=== PATIENT | female | born 1940 | race Caucasian/White ===

== ENCOUNTER → 2021-12-30 13:00 | Outpatient (CLI) | payer MEDICARE, MEDICAID, SELFPAY ==
--- NOTE | 2021-12-30 13:03 | DI.CT.S_ITS ---
PROCEDURE: CT ABDOMEN PELVIS WO CON INDICATIONS: Unspecified abdominal hernia TECHNIQUE: Axial sections were acquired from the lung bases to the pubic symphysis. Coronal and sagittal reformats were performed. For radiation dose reduction, the following was used: automated exposure control, adjustment of mA and/or kV according to patient size. COMPARISON: None. FINDINGS: Image quality: Excellent. Lung bases: Unremarkable. Heart: No significant findings. URINARY: Right Kidney: No stones or hydronephrosis. Right Ureter: No hydroureter. Left Kidney: No stones or hydronephrosis. Left Ureter: No hydroureter. Bladder: Normal wall thickness. No stones. ABDOMEN: Liver: A few calcified liver hemangiomas are seen. The liver is normal in size and demonstrates no suspicious lesions. Gallbladder: Unremarkable. Biliary ducts: Unremarkable. Pancreas: Unremarkable. Spleen: A few calcified splenic granulomas can be seen. Adrenal Glands: Unremarkable. Stomach and Bowel: Stomach, small bowel loops, and colon are unremarkable. Peritoneum: No abnormal intraperitoneal fluid. No free air. Ventral Wall: There is a right-sided spigelian hernia seen, which contains fat, as on series 2, image 58 and on series 4, image 20. Abdominal Nodes: No enlarged retroperitoneal or mesenteric lymph nodes. Vessels: Aorta and inferior vena cava are normal in size. Atherosclerotic calcification is noted. PELVIS: Pelvic Organs: An atrophic uterus is seen, which is considered to be normal for age. No adnexal masses are seen on either side. Pelvic Nodes: Unremarkable. Miscellaneous: There is a moderately sized right inguinal hernia seen, which contains fat. Bones: Mild dextroconvex scoliotic curvature is seen. Age-appropriate bony degenerative changes are seen. IMPRESSION: Right-sided spigelian hernia, which contains fat. Incidental note is made of: Prior granulomatous exposure. Moderately sized fat containing right inguinal hernia. Dictated by: Eduardo Mckeon M.D. on 12/30/2021 at 16:43 Approved by: Eduardo Mckeon M.D. on 12/30/2021 at 16:47
== END ==
PROVIDERS: PCP Student in an Organized Health Care Education/Training Program; Referring Provider Student in an Organized Health Care Education/Training Program; Visit Provider Student in an Organized Health Care Education/Training Program
DX: K43.9 Ventral hernia without obstruction or gangrene (principal); K40.90 Unilateral inguinal hernia, without obstruction or gangrene, not specified as recurrent
CPT/HCPCS: 74176

== ENCOUNTER 2022-01-05 10:38 | Day surgery (SDC) | payer MEDICARE, MEDICAID, SELFPAY ==
[2022-01-03 10:55] VITALS: BMI 20.5
[2022-01-05] VITALS (10 sets, daily range): BP systolic 105–132; BP diastolic 56–74; PULSE 65–104; RESP 12–20; TEMP 36.2–36.7; O2SAT 94–99; BMI 20.5
[2022-01-05] MEDS: LACTATED RINGERS 1,000 ML 100 ML IV (11:40)
[2022-01-05 12:03] LABS: COVID19 -Nasal RAPID Negative (Negative)
--- NOTE | 2022-01-05 12:08 | PM.PREOP ---
Pre-operative Note Interval Note History & Physical reviewed/Exam performed by Physician: Yes Changes to H&P: No
[2022-01-05] MEDS: CEFAZOLIN 2 GM/20 ML SYRINGE IV (12:48)
--- NOTE | 2022-01-05 12:57 | SUR.OPER ---
Supine on padded OR bed, head on pillow, arms secured on padded arm boards at <90 degrees abduction, legs uncrossed, safety belt at thigh, tape over blanket over lower legs, gel padding under bilateral heels.
[2022-01-05] MEDS: BUPIVACAINE 0.25% (PF) VIAL 30 ML INJ (13:06)
--- NOTE | 2022-01-05 13:55 | PM.OP.1 ---
Operative Date/Time/Diagnoses Date of procedure: 01/05/22 Time of procedure: 13:55 Pre-op diagnosis: Right inguinal hernia Post-op diagnosis: same Procedure & Clinicians Procedure: Open right inguinal repair with mesh Same procedure as scheduled: Yes Indications: Reducible symptomatic right inguinal hernia Surgeon: Gideon Arrieta Yes if Unassisted: Yes Anesthesia Type: General Operative Notes Findings: Direct floor defect containing omentum Estimated Blood Loss (mL): 50 Procedure in detail: The patient was placed supine on the table and bilateral lower extremity compression devices were applied. Anesthesia was induced they were intubated with an LMA and received Ancef. A time-out was performed. They were prepped and draped in sterile fashion. The right external inguinal ring and the anterior superior iliac crest were identified and marked. 1 finger breath above the inguinal ligament the skin was infiltrated with 0.25% bupivacaine. The skin incision was made here and the subcutaneous tissues were divided with electrocautery exposing the external oblique aponeurosis which was then opened along the direction of its fibers. Using blunt dissection the internal oblique aporneurosis was from the external oblique upper leaflet to identify the iliohypogastric nerve. A direct floor defect was identified and it was reduced into the abdomen and the internal oblique aporneuorsis was approximated to the inguinal ligament with Ethibond suture to reapproximate the floor. I selected a 7x 15 cm lightweight Pro Loop hernia mesh. The inferior medial aspect of the mesh was anchored to insertion of the rectus muscle to the pubic tubercle such that there was approximately 2 cm of tubercle overlap with Ethibond and then was run continuously along the inferior edge of the mesh to the shelving edge of the inguinal ligament. Interrupted 3 0 Vicryl suture was used to anchor the superior aspect of the mesh to the conjoined tendon in several places. The repair was checked for hemostasis. The wound was irrigated with sterile saline. The external oblique aponeurosis was reapproximated in a running fashion using 3 0 Vicryl. The subcutaneous tissues were reapproximated with 3 0 Vicryl skin closed with 4 0 Monocryl followed by the application of Dermabond. The sponge instrument count at the end operation was correct. The patient emerged from anesthesia was extubated and transferred to the postoperative care unit in stable condition. A total of 30 ml of of 0.25% bupivicaine was used to infiltrate the skin. Complications: none Post-operative Condition: stable Disposition: same day surgery
--- NOTE | 2022-01-05 13:58 | SUR.PHASEI ---
A&O, pleasant, comfortable, tolerating PO well. Anxious to go home.
== END 2022-01-05 14:45 | disposition home or self-care (01) ==
PROVIDERS: PCP Student in an Organized Health Care Education/Training Program; Referring Provider Surgery; Visit Provider Surgery
PROC: (CPT 49505; principal; 2022-01-05 11:15)
DX: K40.90 Unilateral inguinal hernia, without obstruction or gangrene, not specified as recurrent (principal); Z20.822 Contact with and (suspected) exposure to COVID-19
CPT/HCPCS: 49505; 82962; 87635; C9803; J0690; J1100; J2405; J2704; J3010

== ENCOUNTER 2024-03-06 07:20 | Day surgery (SDC) | payer MEDICARE, MEDICAID, SELFPAY ==
[2024-03-04 10:41] VITALS: BMI 22.8
--- NOTE | 2024-03-05 08:18 | PM.PREOP ---
Pre-operative Note Interval Note History & Physical reviewed/Exam performed by Physician: Yes Changes to H&P: No
[2024-03-06] VITALS (8 sets, daily range): BP systolic 68–142; BP diastolic 33–84; PULSE 51–70; RESP 11–19; TEMP 36.2–36.9; O2SAT 94–98; BMI 22.8
[2024-03-06] MEDS: LACTATED RINGERS 1,000 ML 21 ML IV (07:50)
[2024-03-06] MEDS: ACETAMINOPHEN 325 MG TABLET 975 MG PO (08:10)
[2024-03-06] MEDS: CEFAZOLIN 2 GM/100 ML PREMIX 100 ML IV (08:37)
--- NOTE | 2024-03-06 08:59 | SUR.OPER ---
Supine on padded OR bed, head on pillow, arms padded and tucked at sides, legs uncrossed, safety belt at thigh, tape over blanket over lower legs .
[2024-03-06] MEDS: BUPIVACAINE 0.25% (PF) VIAL 30 ML INJ (09:07)
--- NOTE | 2024-03-06 12:15 | PM.OP.1 ---
Operative Date/Time/Diagnoses Date of procedure: 03/06/24 Time of procedure: 12:15 Pre-op diagnosis: Recurrent right inguinal hernia Post-op diagnosis: same Procedure & Clinicians Procedure: Laparoscopic repair of recurrent right inguinal hernia Same procedure as scheduled: Yes Indications: Symptomatic reducible right inguinal hernia. Previous open repair Surgeon: Gideon Millan Public Area Attendant: Td Coombs Anesthesia Type: General Operative Notes Findings: Direct floor defect. Specimen(s): none sent Estimated Blood Loss (mL): 20 Procedure in detail: The patient was brought to the operating room and placed supine on the table. Bilateral sequential compression devices were applied. General anesthesia was induced and they were intubated with an endotracheal tube. A frye cath was placed in sterile fashion. They received 2 g Ancef prior to skin incision. They were prepped and draped in sterile fashion. A time out was performed to ensure the correct patient, procedure and necessary equipment within the operating room. The skin was infiltrated with 0.25% bupivicaine. A 1 cm supra umbilical midline incision was made. The fascia was sharply incised and the abdomen entered traumatically. A 10mm balloon port was placed and pneumoperitoneum was established at 15mm Hg. Inspection of the abdomen demonstrated no evidence of injury upon entry. Two 5 mm ports were then placed under direct visualization in the right and left lower quadrant lateral to the rectus muscle. A right direct hernia was identified. The peritoneum 4 cm superior to the deep inguinal ring between the medial umbilical ligament and the anterior superior iliac spine was incised. The medial preperitoneal dissection was carried out into the space of Retzius bluntly, the bladder was swept inferiorly, the pubis and Tim's ligament were identified. Next attention was turned towards the lateral aspect of the peritoneal flap. The preperitoneal fat was carefully dissected off the inferior peritoneal flap. The round ligament was divided using electrocautery.. The attachements to the direct hernia sac were divided and the direct defect was reduced. A large Bard 3D Max mesh was then placed into the abdomen and positioned such that the myopectineal orifice was completely covered with good overlap on all sides. The peritoneal flap was then repositioned back to its original position and a running V lock suture was used to close the peritoneum such that no bowel could herniate into the preperitoneal space. The area was examined for hemostasis. The 5mm trocars were removed under direct visualization and pneumoperitoneum was deflated through the umbilical trocar, The fascia at the umbilicus was closed with 0-Vicryl in figure of 8 fashion, skin closed with 4-0 Monocyl followed by Dermabond. The sponge and instrument count at the end of the case was correct. The patient emerged from anaesthsia was extubated and transferred to recovery in stable condition. Complications: none Post-operative Condition: stable Disposition: same day surgery
== END 2024-03-06 11:04 | disposition home or self-care (01) ==
PROVIDERS: Referring Provider Surgery; Visit Provider Surgery
PROC: 0YQ54ZZ Repair Right Inguinal Region, Percutaneous Endoscopic Approach (ICD-10-PCS; CPT 49651; principal; 2024-03-06 08:45)
DX: K40.91 Unilateral inguinal hernia, without obstruction or gangrene, recurrent (principal)
CPT/HCPCS: 49651; J0690; J1100; J2405; J2704; J3010

== ENCOUNTER 2024-03-28 09:14 | Emergency (ER) | payer MEDICARE, MEDICAID, SELFPAY ==
[2024-03-28] VITALS (14 sets, daily range): BP systolic 115–179; BP diastolic 58–75; PULSE 50–63; RESP 12–16; TEMP 36.5; O2SAT 94–99; BMI 21.2
--- NOTE | 2024-03-28 09:57 | ED.RECABL ---
HPI - Recheck/Abnormal Lab/Rx General Chief Complaint: Recheck/Abnormal Lab/Rx Stated Complaint: per pt has cyst pressing on bladder Time Seen by Provider: 03/28/24 09:52 Source: patient Mode of arrival: Ambulatory History of Present Illness HPI narrative: Patient is a 83-year-old female history of colon cancer stopped chemotherapy in September had a recent right inguinal hernia repair on 03/06/[address] Millan presents today after routine scanning yesterday. She has no symptoms she has no abdominal pain nausea vomiting weight loss fever or frequent urination. She reports that she was told to emergently come to the ED when they found assist pushing on her bladder. We do not have records of the scan although we are attempting to get them now. She has no abdominal pain. Related Data Home Medications Medication Instructions Recorded Confirmed cholecalciferol (vitamin D3) 50 50 mcg PO DAILY 12/31/21 03/21/24 mcg (2,000 unit) capsule (Vitamin D3) lactobacillus combination no.9 4 4,000 mmu cells PO DAILY 12/31/21 03/21/24 billion cell capsule (Adult 50 Plus Probiotic) multivitamin (Daily Vitamin 1 tab PO DAILY 12/31/21 03/21/24 Formula tablet) Previous Rx's Medication Instructions Recorded acetaminophen 325 mg capsule 650 mg (2 x 325 mg) PO QID PRN 01/05/22 (Tylenol) pain #60 caps ibuprofen 200 mg tablet 400 mg (2 x 200 mg) PO Q6H #60 tabs 01/05/22 docusate sodium 100 mg capsule 100 mg PO BID #30 caps 03/06/24 (Colace) tramadol 50 mg tablet 50 mg PO Q6H PRN pain #15 tabs 03/06/24 Allergies Allergy/AdvReac Type Severity Reaction Status Date / Time No Known Drug Allergies Allergy Verified 03/28/24 09:27 Patient History Medical History 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 Broken leg MS (multiple sclerosis) Surgical History History of colonoscopy with polypectomy (10/25/23) Hx of hernia repair (01/05/22) H/O colectomy H/O right inguinal hernia repair H/O vaginal surgery Social History marital status: unknown household members: none lives independently: Yes occupational status: previously employed Smoking Status: Former smoker alcohol intake: current substance use type: does not use Smoking Status: Former smoker alcohol intake frequency: holidays/special occasions only Substance Use Type: does not use Exam Initial Vital Signs Initial Vital Signs: Vital Signs Temperature 97.7 F 03/28/24 09:16 Pulse Rate 57 L 03/28/24 09:16 Respiratory Rate 15 03/28/24 09:16 Blood Pressure 179/75 H 03/28/24 09:16 Pulse Oximetry 96 03/28/24 09:16 Oxygen Delivery Method Room Air 03/28/24 09:16 GENERAL: Alert 83-year-old female and in no acute distress. HEENT: Head atraumatic,EOMI, pupils reactive, face symmetric, moist mucous membranes CARDIOVASCULAR: Regular rate and rhythm without murmurs, rubs or gallops. RESPIRATORY: Breath sounds equal bilaterally, no wheezes rales or rhonchi. ABDOMEN: Soft, nontender. Normoactive bowel sounds all 4 quadrants. No guarding or rebound. EXTREMITIES: Normal range of motion, no clubbing or edema. Neurovascularly intact NEUROLOGICAL: Alert and oriented x4.Normal gait and speech. Cranial nerves II through XII grossly intact. SKIN: Warm, dry, no laceration, no petechiae, no rashes or lesions. Course Orders Ordered: ED Orders 03/28/24 11:34 US pelvic complete Stat 03/28/24 11:50 CBC Auto Diff [Complete Blood Count AUTO DIFF] Stat CEA [Carcinoembryonic Antigen] Stat CMP [Comprehensive Metabolic Panel] Stat Cancer Antigen 125 Stat Vital Signs Vital signs: Vital Signs - 8 hr 03/28/24 13:50 03/28/24 13:51 03/28/24 13:52 Pulse Rate 63 63 Respiratory Rate Blood Pressure 145/66 H Pulse Oximetry 98 98 03/28/24 13:52 03/28/24 14:41 03/28/24 14:42 Pulse Rate 63 62 Respiratory Rate Blood Pressure Pulse Oximetry 99 99 98 03/28/24 14:42 03/28/24 15:00 03/28/24 15:00 Pulse Rate 57 L Respiratory Rate 12 Blood Pressure 115/60 132/58 L Pulse Oximetry 98 03/28/24 15:30 03/28/24 15:30 03/28/24 16:00 Pulse Rate 50 L 54 L Respiratory Rate Blood Pressure 144/67 H Pulse Oximetry 98 97 03/28/24 16:01 03/28/24 16:01 03/28/24 16:29 Pulse Rate 58 L 58 L Respiratory Rate 12 Blood Pressure 155/70 H 156/67 H Pulse Oximetry 97 95 03/28/24 16:29 03/28/24 16:30 Pulse Rate Respiratory Rate Blood Pressure 156/67 H Pulse Oximetry 96 MDM - Recheck/Abnormal Lab/Rx Lab Data 03/28/24 11:50 03/28/24 11:50 Labs: Lab Results 03/28/24 Range/Units 11:50 WBC 3.3 L (4.5-11.0) X10^3/uL RBC 4.65 (4.0-5.2) X10^6/uL Hgb 13.5 (12.0-16.0) g/dL Hct 40.3 (36-46) % MCV 86.7 (80-100) fL MCH 29.1 (26-34) PG MCHC 33.5 (30-36) % RDW 15.0 H (11.6-14.8) % Plt Count 167 (150-400) X10^3/uL Neut % (Auto) 45.0 L (50-75) % Lymph % (Auto) 38.6 (25-40) % Saline % (Auto) 10.6 (3-14) % Eos % (Auto) 4.3 H (2-4) % Baso % (Auto) 1.5 (0-2) % Neut # (Auto) 1500 (5858-2844) /uL Lymph # (Auto) 1300 (7903-3085) /uL Saline # (Auto) 300 (0-900) /uL Eos # (Auto) 100 (0-450) /uL Baso # (Auto) 0 (0-100) /uL Sodium 139 (137-145) mmol/L Potassium 4.0 (3.4-5.1) mmol/L Chloride 108 H (98-107) mmol/L Carbon Dioxide 24 (22-32) mmol/L BUN 17 (7-17) mg/dL Creatinine 0.62 (0.52-1.04) mg/dL Estimated GFR > 60 (>60) mL/min BUN/Creatinine Ratio 27.4 H (6-22) Glucose 90 (80-110) mg/dL Calcium 8.9 (8.4-10.2) mg/dL Total Bilirubin 0.6 (0.2-1.3) mg/dL AST 28 (14-36) IU/L ALT 14 (<35) IU/L Alkaline Phosphatase 140 H (38-126) U/L Total Protein 7.0 (6.3-8.2) g/dL Albumin 4.1 (3.5-5.0) g/dL Globulin 2.9 (1.7-4.1) g/dL Albumin/Globulin Ratio 1.4 (1.0-2.8) Carcinoembryonic Ag 1.9 (0.1-3.0) ng/mL CA 125 Antigen 30.3 (0-35) U/mL Imaging Data US - NEWSPAPER PHOTOGRAPHER: Radiologist's Impression: PROCEDURE: MR HEAD/BRAIN WO CON INDICATIONS: tia TECHNIQUE: Non-contrast axial T1 spin echo, axial T2 fast spin echo, sagittal and axial FLAIR, coronal T2 fast spin echo, axial gradient echo, axial diffusion and ADC through the brain. COMPARISON: [facility], MR, MR HEAD/BRAIN WO CON, 07/05/2023, 15:33. [facility], CT, CT HEAD/BRAIN WO CON, 12/24/2020, 12:14. [facility], CT, CT HEAD/BRAIN WO CON, 03/28/2024, 13:56. [facility], CT, CT ANGIO HEAD AND NECK, 03/28/2024, 13:56. FINDINGS: Image quality: Excellent. CSF spaces: Ventricles appear symmetric in size and shape. Basal cisterns are patent. No extra-axial fluid collections. Brain: No intracranial bleeds or mass effects. There is cerebral volume loss for age. There are periventricular and deep white matter chronic small vessel ischemic changes. Brainstem appears normal. Diffusion-weighted images show no acute infarct. 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 Normal intravascular flow voids are present. Skull and face: Calvarial bone marrow is normal in signal. Orbits are normal. Note is made of bilateral lens replacements. No nasopharyngeal mass can be seen. Sinuses: There is significant left mastoid air cell fluid seen. No significant paranasal sinus disease can be seen. IMPRESSION: No findings of acute or subacute infarction can be seen. Note is made of age-appropriate brain parenchymal volume loss and chronic small vessel ischemic changes. 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 Significant left mastoid air fluid again seen. No associated nasopharyngeal mass is seen. Dictated by: Eduardo Mckeon M.D. on 03/28/2024 at 15:03 MDM Narrative Medical decision making narrative: MDM CC: Cyst Complicating co-morbidities: Colon cancer Medical records reviewed: [facility] not [facility] any new imaging except for January 16 CT, I spoke with Oncology office staff who did not see any new imaging said that she is due for imaging, however finally on patient's ?my chart she was able to pull up the CT imaging that she had yesterday which does show that compared to exam on 01/17/2024 new large encapsulated simple fluid collection in the right lower pelvis measures up to 9.9 cm and exhibits leftward mass effect on the urinary bladder. This finding is of unclear etiology however given simple fluid appearance without surrounding inflammatory changes a seroma or lymphocele are favored and less likely to be an adnexal cyst given patient age or abscess. She has a similar appearance of pad containing right femoral hernia without surrounding inflammation or fluid collection, she has a slightly decreased size of left upper lobe pulmonary nodule Differential considered: Metastatic cancer new cancer Exam documented above, pertinent findings include: Abdomen soft nontender nondistended Lab Test results independently reviewed as above. Pertinent findings: CEA it is 30, CA 125 is 1.9, WBC 3.3 hemoglobin 13.5 hematocrit 40.3 platelets 167, sodium 139 potassium 4.0 chloride 108 carbon dioxide 24 BUN 17 creatinine 0.6, bilirubin 0.6 AST 20 ALT 14 alk-phos 140 Imaging studies independently reviewed: Large right ovarian cyst, no concern for mass Consultations: Dr. Reno attempted multiple phone calls, I texted cell phone at 1:00 p.m. Finally found out that she was operating in the OR. Finally a message got through to her. 1620: I spoke with Dr. Reno reports this can be done as an outpatient aware the large ovarian cyst. Probably not cancerous. Treatments: None Re-evaluations: Patient continues to weight patiently be completely asymptomatic Discussion: Patient is an 83-year-old female who presents today with an ovarian cyst. It is large but she has asymptomatic no evidence of cancer. Imaging from CT done yesterday is found on her my chart does not appear of any further extensive metastatic disease. OBGYN was consulted reports outpatient referral no need for emergent surgery. Discharge Plan Departure Patient Disposition: Home Clinical Impression: Cyst, ovarian Instructions: DI for Ovarian Cyst Activity Restrictions/Additional Instructions: *You have been diagnosed with ovarian cysts *What to do: At this time you do need to have surgery however it is not emergent and will not be happening today. It was recommended by Dr. Nick that you call their office to schedule an appointment to then schedule surgery. *Continue to take medications as directed *Follow up with your primary care provider in 2-3 days or call [phone] *Return to ER if you should have increasing abdominal pain nausea vomiting or any new, worsening or concerning symptoms Prescriptions: No Action multivitamin [Daily Vitamin Formula] Tablet 1 tab PO DAILY Adult 50 Plus Probiotic 4 billion cell capsule 4,000 mmu cells PO DAILY Rx Instructions: administer with a meal cholecalciferol (vitamin D3) [Vitamin D3] 50 mcg (2,000 unit) capsule 50 mcg PO DAILY ibuprofen 200 mg tablet 400 mg PO Q6H Qty: 60 0RF acetaminophen [Tylenol] 325 mg capsule 650 mg PO QID PRN (Reason: pain) Qty: 60 0RF docusate sodium [Colace] 100 mg capsule 100 mg PO BID Qty: 30 0RF tramadol 50 mg tablet 50 mg PO Q6H PRN (Reason: pain) Qty: 15 0RF Referrals: Cecily Nick DO [Physician] - Stand Alone Forms: Patient Portal/API
--- NOTE | 2024-03-28 11:34 | DI.US.S_ITS ---
PROCEDURE: US PELVIC COMPLETE INDICATIONS: left cyst TECHNIQUE: Real-time scanning was performed of the pelvic organs, with image documentation. Additional endovaginal scanning was necessary due to incomplete visualization of the adnexal and endometrial structures by transabdominal scanning. COMPARISON: Outside Facility, CT, CT CHEST ABD PEL W CON, 03/27/2024, 11:25. FINDINGS: Uterus: 3.5 x 4 x 1.8 centimeters. Atrophic and heterogeneous. Senescent calcifications are present. Possible fibroid measures 7 millimeters at the fundus. This is not well evaluated on ultrasound. Trace anechoic endometrial fluid. Endometrium measures 1-2 millimeters. Ovaries: Left ovary was not seen. Enlarged right ovary is present measuring 350 cc. Arterial and color flows is present. Right adnexal cystic lesion measures 12.7 x 8.7 x 6.1 centimeters. There are internal septations and echoes. Other: Postvoid residual in the bladder is 27 cc. The urinary bladder is displaced to the left. No incidental hydronephrosis detected. Possible right renal cyst also seen measuring 2.4 centimeters. IMPRESSION: Right adnexal cystic lesion measures up to 12.7 centimeters. There are internal septations and echoes. This may represent a seroma or hematoma versus ovarian cystic lesion. Depending on clinical context, further evaluation may be obtained with MRI or follow-up ultrasound. Incidental hypoechoic lesion at the uterine fundus may represent an atrophic fibroid. This could also be followed on subsequent imaging. Dictated by: Abilio Ruby M.D. on 03/28/2024 at 14:21 Approved by: Abilio Ruby M.D. on 03/28/2024 at 14:25
[2024-03-28 12:07] LABS: Add Manual Diff / Slide Review NO; Basophils Absolute Auto 0 /uL (0-100); Basophils Percent Auto 1.5 % (0-2); Eosinophils Absolute Auto 100 /uL (0-450); Eosinophils Percent Auto 4.3 % (2-4); Hematocrit 40.3 % (36-46); Hemoglobin 13.5 g/dL (12.0-16.0); Lymphocytes Absolute Auto 1300 /uL (1100-4500); Lymphocytes Percent Auto 38.6 % (25-40); Mean Corpuscular HGB Conc 33.5 % (30-36); Mean Corpuscular Hemoglobin 29.1 PG (26-34); Mean Corpuscular Volume 86.7 fL (80-100); Monocytes Absolute Auto 300 /uL (0-900); Monocytes Percent Auto 10.6 % (3-14); Neutrophils Absolute Auto 1500 /uL (1500-7000); Platelet Count 167 X10^3/uL (150-400); Red Blood Cell Count 4.65 X10^6/uL (4.0-5.2); White Blood Cell Count 3.3 X10^3/uL (4.5-11.0)
[2024-03-28 12:25] LABS: Alanine Aminotransferase 14 IU/L (<35); Albumin 4.1 g/dL (3.5-5.0); Albumin Globulin Ratio 1.4 (1.0-2.8); Alkaline Phosphatase 140 U/L (38-126); Aspartate Aminotransferase 28 IU/L (14-36); BUN Creatinine Ratio 27.4 (6-22); Bilirubin Total 0.6 mg/dL (0.2-1.3); Blood Urea Nitrogen 17 mg/dL (7-17); Calcium 8.9 mg/dL (8.4-10.2); Carbon Dioxide 24 mmol/L (22-32); Chloride 108 mmol/L (98-107); Estimated Glomerular Filt Rate > 60 mL/min (>60); Globulin 2.9 g/dL (1.7-4.1); Glucose 90 mg/dL (80-110); HEMOLYSIS < 15 (0-50); Sodium 139 mmol/L (137-145)
[2024-03-28 12:55] LABS: Cancer Antigen 125 30.3 U/mL (0-35); Carcinoembryonic Antigen 1.9 ng/mL (0.1-3.0)
== END 2024-03-28 16:37 | disposition home or self-care (01) ==
PROVIDERS: Emergency Provider Emergency Medicine
DX: N83.202 Unspecified ovarian cyst, left side (principal)
CPT/HCPCS: 36415; 76830; 76856; 80053; 82378; 85025; 86304; 93976; 99284